=== PATIENT | female | born 1950 | race Caucasian/White ===

== ENCOUNTER 2017-09-05 13:14 | Outpatient (CLI) | payer OTHER, BC | END 2017-09-05 13:15 | disposition home or self-care (01) | LOC: BICMAMMO 13:14 | PROVIDERS: ATTEND Internal Medicine | DX: Z12.31 Encounter for screening mammogram for malignant neoplasm of breast (principal); R92.1 Mammographic calcification found on diagnostic imaging of breast | CPT/HCPCS: 77063; 77067 ==

== ENCOUNTER 2019-01-23 08:45 | Day surgery (SDC) | payer OTHER ==
[2019-01-22 15:57] VITALS: BMI 21.2
[2019-01-23] MEDS ORDERED: Lidocaine 2% Jelly 5 ML TUBE ONE (10:37)
[2019-01-23] MEDS ORDERED: Fentanyl 100 MCG/2 ML VIAL ONE ×3 (10:37→13:05)
[2019-01-23] MEDS ORDERED: Ondansetron PF 4 MG/2 ML Vial ONE (13:05)
[2019-01-23] MEDS ORDERED: Promethazine HCl 25 MG/ML VIAL ONE (14:04)
--- NOTE | 2019-01-24 09:11 | OP ---
DATE OF PROCEDURE: 01/23/2019 TRUST MANAGER: Arian Amador PA-C. INDICATION: Pain. DIAGNOSIS: Cervical radiculopathy. PROCEDURE PERFORMED: Anterior cervical diskectomy and fusion, C6-7. ANESTHESIA: General. DESCRIPTION OF PROCEDURE: The patient was brought into the operating room and placed under general anesthesia. She was placed on the table in supine position. A transverse incision was planned over the lateral aspect of the neck on the right. After prepping and draping and after an appropriate operative pause, the incision was created. The underlying platysma muscle was identified and incised. A blunt tissue plane anterior to the sternocleidomastoid muscle was used to gain access to the prevertebral space. After identifying the appropriate level with C-arm fluoroscopy, an annulotomy was performed in the C6-C7 disk space. All disk material was removed as were anterior and posterior osteophytes until the exiting nerve root at C6-C7 was decompressed. A 7-mm lordotic PEEK cage packed with allograft and autograft material was then placed within the interbody space. An anterior cervical plate was then fashioned to the front of spine and secured with a total of 4 fixed screws. Midline and lateral structures were then inspected and found to be free of significant trauma. The wound was irrigated. Hemostasis was maintained throughout. The wound was then closed in anatomic layers and a pressure dressing was applied. There were no known procedural complications. Job ID: [id number]
== END 2019-01-23 14:58 | disposition home or self-care (01) ==
LOC: SDC 08:45
PROVIDERS: ATTEND Neurological Surgery
PROC: 0RT30ZZ Resection of Cervical Vertebral Disc, Open Approach (ICD-10-PCS; principal; 2019-01-23)
PROC: 0RG10A0 Fusion of Cervical Vertebral Joint with Interbody Fusion Device, Anterior Approach, Anterior Column, Open Approach (ICD-10-PCS; principal; 2019-01-23)
DX: M54.12 Radiculopathy, cervical region (principal); I10 Essential (primary) hypertension; Z88.8 Allergy status to other drugs, medicaments and biological substances
CPT/HCPCS: 76000; C1713; C1776; J0690; J2405; J2550; J3010

== ENCOUNTER 2019-03-08 07:25 | Day surgery (SDC) | payer OTHER ==
[2019-03-07 09:23] VITALS: BMI 21.2
[2019-03-08] MEDS ORDERED: Midazolam HCl 2 mg/2 ml Vial ONE (08:03)
[2019-03-08] MEDS ORDERED: Fentanyl 100 MCG/2 ML VIAL ONE ×2 (08:03→09:29)
[2019-03-08] MEDS ORDERED: Scopolamine 1.5 mg/72 hour Patch ONE (08:09)
[2019-03-08] MEDS ORDERED: Ketorolac Tromethamine 30 MG/ML VIAL IVP PRN (09:16)
[2019-03-08] MEDS ORDERED: traMADol HCl 50 MG TAB PO PRN ×2 (09:16)
[2019-03-08] MEDS ORDERED: HYDROcodone/Acetaminophen 10/325 mg Tablet PO PRN ×2 (09:16)
[2019-03-08] MEDS ORDERED: Ondansetron PF 4 MG/2 ML Vial IVP PRN (09:16)
[2019-03-08] MEDS ORDERED: Promethazine HCl 25 MG/ML VIAL IM PRN (09:16)
[2019-03-08] MEDS ORDERED: Ropivacaine 0.2% 550 ML 550 ML NERVE BLCK SCH (09:16)
[2019-03-08] MEDS ORDERED: Zolpidem Tartrate 5 MG TAB PO PRN (09:16)
[2019-03-08] MEDS ORDERED: Acetaminophen 325 MG TAB PO PRN (09:17)
[2019-03-08] MEDS ORDERED: Fentanyl 100 MCG/2 ML VIAL SLOW IVP PRN (09:17)
[2019-03-08] MEDS ORDERED: Promethazine HCl 25 MG/ML VIAL ONE (11:18)
[2019-03-08] MEDS ORDERED: HYDROcodone/Acetaminophen 5/325 mg Tablet ONE (11:31)
[2019-03-08] MEDS ORDERED: PROPOFOL 200 MG/20 ML VIAL ONE (12:07)
[2019-03-08] MEDS ORDERED: Ropivacaine 0.2% HCl/PF (40 MG/20 ML VIAL) ONE (12:07)
[2019-03-08] MEDS ORDERED: Ondansetron PF 4 MG/2 ML Vial ONE (12:07)
[2019-03-08] MEDS ORDERED: Rocuronium Bromide 10 MG/ML (10ML VIAL) ONE (12:07)
[2019-03-08] MEDS ORDERED: Glycopyrrolate 0.2 MG/ML 5 ML SYRINGE ONE (12:07)
[2019-03-08] MEDS ORDERED: Dexamethasone 20 MG/5 ML VIAL ONE (12:07)
[2019-03-08] MEDS ORDERED: Bupivacaine HCl 0.5%/Epinephrine 1:200,000/PF 30 ml Vial ONE (12:07)
[2019-03-08] MEDS ORDERED: Metoclopramide HCl 10 MG/2 ML VIAL ONE (12:07)
[2019-03-08] MEDS ORDERED: Lidocaine 1% PF 5 ML VIAL ONE (12:07)
--- NOTE | 2019-03-10 21:25 | OP ---
DATE OF PROCEDURE: 03/08/2019 PREOPERATIVE DIAGNOSIS: Rotator cuff tear, right shoulder. POSTOPERATIVE DIAGNOSIS: Rotator cuff tear, right shoulder. PROCEDURE PERFORMED: 1. Arthroscopic subacromial decompression. 2. Arthroscopic rotator cuff repair. ANESTHESIA: General. BLOOD LOSS: Minimal. SPECIMEN: None. DRAINS: None. COMPLICATION: None. DESCRIPTION OF PROCEDURE: The patient was taken to the operating room, where general anesthesia was induced. The patient was placed in left lateral decubitus position. Right arm was placed in traction, prepped and draped in usual sterile fashion. Scope was then placed in glenohumeral joint. There were only minimal arthritic changes. There was a full-thickness rotator cuff tear. The biceps tendon was in good condition. The scope was placed in the subacromial bursa, bursectomy was performed. The CA ligament was taken down. Hemostasis obtained. Anterior and inferior acromioplasty was performed using a bur. I freshened the rotator cuff tear, freshened the greater tuberosity. I used three [id number]-[id number] convergence sutures to repair the central portion of the defect. I then placed a corkscrew suture anchor through the denuded bone and passed sutures through the anterior and posterior limb of the tear, tied this down to good watertight repair and then reinforced this with a double row type configuration using a SwiveLock device. The shoulder was drained, portals closed with nylon suture. Sterile dressings applied. Job ID: [id number]
== END 2019-03-08 13:35 | disposition home or self-care (01) ==
LOC: SDC 07:25
PROVIDERS: ATTEND Orthopaedic Surgery
PROC: 3E0T3BZ Introduction of Anesthetic Agent into Peripheral Nerves and Plexi, Percutaneous Approach (ICD-10-PCS; principal; 2019-03-08)
PROC: 0LQ14ZZ Repair Right Shoulder Tendon, Percutaneous Endoscopic Approach (ICD-10-PCS; principal; 2019-03-08)
PROC: 0RNJ4ZZ Release Right Shoulder Joint, Percutaneous Endoscopic Approach (ICD-10-PCS; principal; 2019-03-08)
DX: M75.121 Complete rotator cuff tear or rupture of right shoulder, not specified as traumatic (principal); G89.18 Other acute postprocedural pain; F41.9 Anxiety disorder, unspecified; F32.9 Major depressive disorder, single episode, unspecified; M19.90 Unspecified osteoarthritis, unspecified site; Z87.891 Personal history of nicotine dependence; Z79.899 Other long term (current) drug therapy; Z88.8 Allergy status to other drugs, medicaments and biological substances
CPT/HCPCS: A4306; C1713; J0670; J0690; J1100; J2001; J2250; J2405; J2550; J2704; J2765; J2795; J3010

== ENCOUNTER 2022-07-20 15:12 | Inpatient (IN) | payer BC, MEDICARE ==
[~2022-07-20 15:12] MED LIST: Iopamidol-370 76% 500 ML MDV (1 ML CHARGE) ONE
[2022-07-20 16:47] VITALS: BMI 24.8
[2022-07-20] MEDS ORDERED: Senokot S 8.6-50 MG TAB PO PRN (17:12)
[2022-07-20] MEDS ORDERED: Bisacodyl 10 MG SUPP PR PRN (17:12)
[2022-07-20] MEDS ORDERED: Ondansetron PF 4 MG/2 ML Vial IVP PRN (17:12)
[2022-07-20] MEDS ORDERED: Bisacodyl 5 MG TAB PO PRN (17:12)
[2022-07-20] MEDS ORDERED: Acetaminophen 325 MG TAB PO PRN (17:12)
[2022-07-20] MEDS ORDERED: Cosyntropin 250 MCG VIAL SLOW IVP SCH (17:30)
[2022-07-20] MEDS ORDERED: Sodium Chloride 0.9% 1,000 ML IV SCH (17:30)
[2022-07-20] MEDS ORDERED: ALPRAZolam 1 MG TAB PO PRN (17:40)
[2022-07-20] MEDS ORDERED: Zolpidem Tartrate 5 MG TAB PO PRN (17:43)
[2022-07-20] MEDS ORDERED: Fioricet 325/50/40 mg Tablet PO PRN (19:01)
[2022-07-20 19:36] LABS: Sodium 119 mmol/L (136-145)
[2022-07-20] MEDS: Latanoprost 0.005% Ophth Soln 2.5 ml Bottle EA EYE SCH (20:04)
[2022-07-20] MEDS: Amlodipine 10 MG TAB PO SCH (20:39)
[2022-07-20] MEDS: Atorvastatin Calcium 10 MG TAB PO SCH (20:39)
[2022-07-20] MEDS: Promethazine HCl 25 MG in Sodium Chloride 0.9% 50 ML IVPB PRN (20:42)
[2022-07-20 21:39] LABS: SARS-CoV-2 NAA Rapid Test Not Detected (NotDetected)
[2022-07-20 22:55] LABS: Bacteria/HPF None Seen HPF (None Seen); Bilirubin Negative (Negative); Blood, Urine Negative (Negative); CAUTI Indications for Culture Alt mental st,lethar; Clarity Clear (Clear); Glucose, Urine (Dipstick) Normal (Negative); Ketone, Urine 20 mg/dL (Negative); Leukocyte Negative Leu/uL (Negative); Nitrite Negative (Negative); Protein, Urine (Dipstick) Negative (Neg-Trace); RBC/HPF None Seen HPF (0-3); Specific Gravity, Urine 1.035 (1.002-1.036); Squamous Epithelial 0-3 HPF (0-3); Urobilinogen Normal mg/dL (Less than 2); WBC/HPF 0-3 HPF (0-3)
[2022-07-20 22:56] LABS: Urine Culture Reflex No No
[2022-07-20] MEDS: Ketorolac Tromethamine 30 MG/ML VIAL IVP PRN (23:13)
[2022-07-21 00:06] LABS: Anion Gap 16 mmol/L (10-20); BUN (Urea Nitrogen) 9 mg/dL (9.8-20.1); Calc. Creatinine Clearance 70 mL/min (70-130); Calcium 9.1 mg/dL (7.8-10.44); Carbon Dioxide 20 mmol/L (23-31); Chloride 87 mmol/L (98-107); Estimated GFR 90; Glucose 99 mg/dL (83-110); Potassium 3.7 mmol/L (3.5-5.1)
[2022-07-21 00:14] LABS: Sodium 119 mmol/L (136-145)
[2022-07-21] MEDS: Promethazine HCl 25 MG in Sodium Chloride 0.9% 50 ML IVPB PRN (02:48)
[2022-07-21 06:07] LABS: #Lymphocytes 2.2 thou/uL (1.20-3.40); #Monocytes 0.5 thou/uL (0.11-0.59); #Neutrophils 7.9 thou/uL (1.40-6.50); %Basophils 0.1 % (0.0-1.0); %Lymphocytes 20.6 % (21.0-51.0); %Monocytes 5.1 % (0.0-10.0); %Neutrophils 74.2 % (42.0-75.0); Hemoglobin 13.1 g/dL (12.0-16.0); Mean Corpuscular HGB CONC 35.3 g/dL (32.0-36.0); Mean Corpuscular Hemoglobin 30.8 pg (27.0-31.0); Mean Corpuscular Volume 87.5 fl (78.0-98.0); Mean Platelet Volume 6.5 fL (7.4-10.4); Platelet Count 381 10x3/uL (130-400); RBC Distribution Width 10.8 % (11.5-14.5); Red Blood Cell (RBC) Count 4.24 mill/uL (4.20-5.40); White Blood Cell (WBC) Count 10.7 10x3/uL (4.8-10.8)
[2022-07-21 06:10] LABS: Hemoglobin A1c 5.8 % (4.0-6.0)
[2022-07-21 06:18] LABS: ALT (SGPT) 19 U/L (8-55); AST (SGOT) 20 U/L (5-34); Albumin 4.5 g/dL (3.4-4.8); Alkaline Phosphatase 64 U/L (40-110); Anion Gap 18 mmol/L (10-20); BUN (Urea Nitrogen) 8 mg/dL (9.8-20.1); Bilirubin, Direct 0.2 mg/dL (0.1-0.3); Bilirubin, Total 0.4 mg/dL (0.2-1.2); Calc. Creatinine Clearance 66 mL/min (70-130); Calcium 9.6 mg/dL (7.8-10.44); Carbon Dioxide 23 mmol/L (23-31); Chloride 88 mmol/L (98-107); Estimated GFR 85; Glucose 87 mg/dL (83-110); Magnesium 1.9 mg/dL (1.6-2.6); Potassium 3.5 mmol/L (3.5-5.1); Protein, Total 7.5 g/dL (5.8-8.1); Sodium 125 mmol/L (136-145)
[2022-07-21] MEDS: Losartan 25 MG TAB PO SCH (08:32)
[2022-07-21] MEDS ORDERED: Amlodipine 10 MG TAB PO SCH (09:00)
[2022-07-21] MEDS ORDERED: Atorvastatin Calcium 10 MG TAB PO SCH (09:00)
[2022-07-21 11:01] LABS: Sodium 123 mmol/L (136-145)
[2022-07-21] MEDS: Ketorolac Tromethamine 30 MG/ML VIAL IVP PRN (12:57)
[2022-07-21 14:36] LABS: Sodium 122 mmol/L (136-145)
[2022-07-21] MEDS ORDERED: Sodium Chloride 0.9% 1,000 ML IV SCH (16:00)
[2022-07-21] MEDS: Atorvastatin Calcium 10 MG TAB PO SCH (20:50)
[2022-07-21] MEDS: Latanoprost 0.005% Ophth Soln 2.5 ml Bottle EA EYE SCH (20:50)
[2022-07-21] MEDS: Amlodipine 10 MG TAB PO SCH (20:50)
[2022-07-21 21:03] LABS: Potassium 3.4 mmol/L (3.5-5.1); Sodium 122 mmol/L (136-145)
[2022-07-21] MEDS ORDERED: Potassium Chloride 20 MEQ TAB PO SCH (21:30)
[2022-07-21] MEDS ORDERED: Electrolyte Replacement Protocol 1 EACH FS SCH (22:45)
[2022-07-22 05:51] LABS: #Lymphocytes 3.3 thou/uL (1.20-3.40); #Monocytes 0.9 thou/uL (0.11-0.59); #Neutrophils 6.9 thou/uL (1.40-6.50); %Basophils 0.2 % (0.0-1.0); %Eosinophils 0.2 % (0.0-10.0); %Lymphocytes 29.5 % (21.0-51.0); %Monocytes 8.4 % (0.0-10.0); %Neutrophils 61.7 % (42.0-75.0); Hemoglobin 11.4 g/dL (12.0-16.0); Mean Corpuscular HGB CONC 35.9 g/dL (32.0-36.0); Mean Corpuscular Hemoglobin 31.9 pg (27.0-31.0); Mean Corpuscular Volume 88.8 fl (78.0-98.0); Mean Platelet Volume 6.4 fL (7.4-10.4); Platelet Count 333 10x3/uL (130-400); Red Blood Cell (RBC) Count 3.59 mill/uL (4.20-5.40); White Blood Cell (WBC) Count 11.2 10x3/uL (4.8-10.8)
[2022-07-22 06:14] LABS: Anion Gap 14 mmol/L (10-20); BUN (Urea Nitrogen) 7 mg/dL (9.8-20.1); Calc. Creatinine Clearance 75 mL/min (70-130); Carbon Dioxide 22 mmol/L (23-31); Chloride 90 mmol/L (98-107); Estimated GFR 93; Glucose 94 mg/dL (83-110); Magnesium 1.7 mg/dL (1.6-2.6); Potassium 3.6 mmol/L (3.5-5.1); Sodium 122 mmol/L (136-145)
[2022-07-22] MEDS ORDERED: Magnesium 2 GM/50 ML(in water) 2 GM in Premix Bag 1 BAG IVPB SCH (08:00)
[2022-07-22 08:17] VITALS: TEMP 97.9
[2022-07-22] MEDS: Losartan 25 MG TAB PO SCH (09:06)
[2022-07-22] MEDS ORDERED: Sodium Chloride 1 GM TAB PO SCH ×2 (10:00→15:00)
[2022-07-22 15:38] LABS: Potassium 3.3 mmol/L (3.5-5.1); Sodium 129 mmol/L (136-145)
[2022-07-22] MEDS ORDERED: Potassium Chloride 20 MEQ TAB PO SCH (16:30)
[2022-07-22 16:40] VITALS: BP 168/74
== END 2022-07-22 18:15 | disposition home or self-care (01) | DRG 643 ==
LOC: NEURO 16:21
PROVIDERS: ADMIT Family Medicine; ATTEND Family Medicine
DX: E22.2 Syndrome of inappropriate secretion of antidiuretic hormone (principal); G93.41 Metabolic encephalopathy; E87.20 Acidosis, unspecified; G43.909 Migraine, unspecified, not intractable, without status migrainosus; F41.9 Anxiety disorder, unspecified; E78.5 Hyperlipidemia, unspecified; I10 Essential (primary) hypertension; L40.50 Arthropathic psoriasis, unspecified; E86.0 Dehydration; T43.225A Adverse effect of selective serotonin reuptake inhibitors, initial encounter; T43.015A Adverse effect of tricyclic antidepressants, initial encounter; E87.8 Other disorders of electrolyte and fluid balance, not elsewhere classified; R19.7 Diarrhea, unspecified; Z87.440 Personal history of urinary (tract) infections; Z79.899 Other long term (current) drug therapy; Z88.8 Allergy status to other drugs, medicaments and biological substances; Z90.49 Acquired absence of other specified parts of digestive tract; Z90.710 Acquired absence of both cervix and uterus; Z20.822 Contact with and (suspected) exposure to COVID-19
CPT/HCPCS: 36415; 70450; 71260; 74177; 80048; 80076; 81001; 82024; 82088; 82533; 83036; 83735; 83930; 83935; 84244; 84300; 84443; 85025; 87040; J1650; J1885; J2405; J2550; J3475; J7050; Q9967; U0002

== ENCOUNTER 2022-07-22 23:49 | Inpatient (IN) | payer MEDICARE ==
[2022-07-23 00:14] LABS: PTT 31.3 sec (22.9-36.1); Prothrombin Time 13.4 sec (12.0-14.7)
[2022-07-23 00:25] LABS: #Lymphocytes 3.1 thou/uL (1.20-3.40); #Monocytes 1.1 thou/uL (0.11-0.59); #Neutrophils 9.8 thou/uL (1.40-6.50); %Basophils 0.1 % (0.0-1.0); %Eosinophils 0.1 % (0.0-10.0); %Lymphocytes 22.1 % (21.0-51.0); %Monocytes 7.5 % (0.0-10.0); %Neutrophils 70.2 % (42.0-75.0); Hemoglobin 12.4 g/dL (12.0-16.0); Mean Corpuscular HGB CONC 34.7 g/dL (32.0-36.0); Mean Corpuscular Hemoglobin 30.7 pg (27.0-31.0); Mean Corpuscular Volume 88.7 fl (78.0-98.0); Mean Platelet Volume 6.2 fL (7.4-10.4); Platelet Count 407 10x3/uL (130-400); RBC Distribution Width 10.9 % (11.5-14.5); Red Blood Cell (RBC) Count 4.04 mill/uL (4.20-5.40)
[2022-07-23 00:38] LABS: ALT (SGPT) 20 U/L (8-55); AST (SGOT) 23 U/L (5-34); Albumin 4.6 g/dL (3.4-4.8); Alkaline Phosphatase 58 U/L (40-110); Anion Gap 15 mmol/L (10-20); BUN (Urea Nitrogen) 8 mg/dL (9.8-20.1); Bilirubin, Total 0.4 mg/dL (0.2-1.2); CK (CPK) 134 U/L (29-168); Calc. Creatinine Clearance 0 mL/min (70-130); Calcium 9.6 mg/dL (7.8-10.44); Carbon Dioxide 23 mmol/L (23-31); Chloride 91 mmol/L (98-107); Estimated GFR 92; Globulin 2.8 g/dL (2.4-3.5); Glucose 135 mg/dL (83-110); Lipase 32 U/L (8-78); Potassium 3.8 mmol/L (3.5-5.1); Protein, Total 7.4 g/dL (5.8-8.1); Sodium 125 mmol/L (136-145)
[2022-07-23] MEDS ORDERED: Labetalol HCl 100 MG/20 ML VIAL ONE (01:44)
[2022-07-23] MEDS ORDERED: levETIRAcetam 500 MG/5 ML VIAL ONE ×3 (01:44→08:06)
[2022-07-23] MEDS ORDERED: LORazepam 2 MG/ML SYR.(CARPUJECT) ONE (01:44)
[2022-07-23 02:26] LABS: Alcohol Less than 10 mg/dL (Less than 10)
[2022-07-23 02:28] LABS: Magnesium 1.9 mg/dL (1.6-2.6)
[2022-07-23 02:29] LABS: Acetaminophen Less than 10.0 mcg/mL (10.0-30.0); Salicylate Less than 8.0 mg/dL (15.0-30.0)
[2022-07-23] MEDS ORDERED: Ondansetron PF 4 MG/2 ML Vial IVP PRN (03:55)
[2022-07-23] MEDS ORDERED: Ondansetron ODT 4 MG TAB PO PRN (03:55)
[2022-07-23] MEDS ORDERED: Acetaminophen 650 MG Suppository PR PRN (03:55)
[2022-07-23] MEDS ORDERED: Acetaminophen 325 MG TAB PO PRN (03:55)
[2022-07-23] MEDS ORDERED: Lorazepam 2 MG/ML VIAL SLOW IVP PRN (03:57)
[2022-07-23 04:29] LABS: Lactic Acid 1.8 mmol/L (0.5-2.2)
[2022-07-23] MEDS: cefTRIAXone\\ROCEPHIN 2 GM in Sodium Chloride 0.9% 100 ML IVPB SCH (05:00)
[2022-07-23] MEDS ORDERED: cefTRIAXone (ROCEPHIN) 2 GM VIAL ONE (05:16)
[2022-07-23 05:39] LABS: Anion Gap 16 mmol/L (10-20); BUN (Urea Nitrogen) 9 mg/dL (9.8-20.1); Calc. Creatinine Clearance 0 mL/min (70-130); Carbon Dioxide 21 mmol/L (23-31); Chloride 91 mmol/L (98-107); Estimated GFR 94; Glucose 131 mg/dL (83-110); Potassium 3.8 mmol/L (3.5-5.1); Sodium 124 mmol/L (136-145)
[2022-07-23 05:49] LABS: Bacteria/HPF None Seen HPF (None Seen); Bilirubin Negative (Negative); Blood, Urine Negative (Negative); Clarity Clear (Clear); Glucose, Urine (Dipstick) 300 mg/dL (Negative); Ketone, Urine 20 mg/dL (Negative); Leukocyte 25 Leu/uL (Negative); Nitrite Negative (Negative); Protein, Urine (Dipstick) Negative (Neg-Trace); RBC/HPF 0-3 HPF (0-3); Squamous Epithelial 0-3 HPF (0-3); Urobilinogen Normal mg/dL (Less than 2); WBC/HPF 0-3 HPF (0-3)
[2022-07-23 05:58] LABS: #Lymphocytes 2.7 thou/uL (1.20-3.40); #Monocytes 1.3 thou/uL (0.11-0.59); #Neutrophils 8.9 thou/uL (1.40-6.50); %Basophils 0.4 % (0.0-1.0); %Lymphocytes 21.1 % (21.0-51.0); %Monocytes 9.7 % (0.0-10.0); %Neutrophils 68.8 % (42.0-75.0); Mean Corpuscular HGB CONC 34.2 g/dL (32.0-36.0); Mean Corpuscular Hemoglobin 30.6 pg (27.0-31.0); Mean Corpuscular Volume 89.4 fl (78.0-98.0); Mean Platelet Volume 6.4 fL (7.4-10.4); Platelet Count 353 10x3/uL (130-400); RBC Distribution Width 10.9 % (11.5-14.5); Red Blood Cell (RBC) Count 3.59 mill/uL (4.20-5.40); White Blood Cell (WBC) Count 12.9 10x3/uL (4.8-10.8)
[2022-07-23] MEDS: VANCOMYCIN 1.25 GM/250 ML BAG 1.25 GM in Premix Bag 1 BAG IVPB SCH (06:38)
[2022-07-23] MEDS: levETIRAcetam 500 MG/5 ML VIAL SLOW IVP SCH ×2 (08:59→20:11)
[2022-07-23] MEDS: Sodium Chloride 1 GM TAB PO SCH ×2 (08:59→20:11)
[2022-07-23] MEDS ORDERED: Ondansetron PF 4 MG/2 ML Vial ONE (09:26)
[2022-07-23 09:52] LABS: Anion Gap 13 mmol/L (10-20); BUN (Urea Nitrogen) 6 mg/dL (9.8-20.1); Calc. Creatinine Clearance 0 mL/min (70-130); Calcium 9.1 mg/dL (7.8-10.44); Carbon Dioxide 25 mmol/L (23-31); Chloride 95 mmol/L (98-107); Estimated GFR 94; Glucose 103 mg/dL (83-110); Potassium 3.6 mmol/L (3.5-5.1); Sodium 129 mmol/L (136-145)
[2022-07-23] MEDS ORDERED: Acetaminophen 325 MG TAB ONE (15:03)
[2022-07-23 17:06] LABS: Potassium 3.2 mmol/L (3.5-5.1); Sodium 129 mmol/L (136-145)
[2022-07-23 17:43] VITALS: BMI 23.6
[2022-07-23] MEDS ORDERED: Potassium Chloride 20 MEQ TAB PO SCH (18:15)
[2022-07-23] MEDS ORDERED: Promethazine 25 MG TAB PO PRN (18:58)
[2022-07-23] MEDS ORDERED: Ketorolac Tromethamine 30 MG/ML VIAL IVP PRN (19:05)
[2022-07-23 19:06] LABS: Amphetamine Not Detected (NotDetected); Barbiturates Screen Not Detected (NotDetected); Benzodiazepine Screen Detected (NotDetected); Cocaine Metabolite Screen Not Detected (NotDetected); Methadone Not Detected (NotDetected); Methamphetamine Not Detected (NotDetected); Opiate Screen Not Detected (NotDetected); Oxycodone Screen Not Detected (NotDetected); Phencyclidine (PCP) Not Detected (NotDetected); THC/Cannabinoid Screen Not Detected (NotDetected); Tricyclic Screen Not Detected (NotDetected)
[2022-07-23] MEDS ORDERED: SUMAtriptan Succinate 50 MG TAB PO PRN (19:08)
[2022-07-23] MEDS ORDERED: Zolpidem Tartrate 5 MG TAB PO PRN (19:14)
[2022-07-23] MEDS: Fioricet 325/50/40 mg Tablet PO SCH (20:12)
[2022-07-23] MEDS: Zolpidem Tartrate 5 MG TAB PO PRN (20:12)
[2022-07-23] MEDS: Amlodipine 10 MG TAB PO SCH (20:13)
[2022-07-23] MEDS: Atorvastatin Calcium 10 MG TAB PO SCH (20:13)
[2022-07-23] MEDS: Latanoprost 0.005% Ophth Soln 2.5 ml Bottle EA EYE SCH (20:13)
[2022-07-23] MEDS: Promethazine HCl 25 MG in Sodium Chloride 0.9% 50 ML IVPB PRN (21:07)
[2022-07-24] MEDS: Fioricet 325/50/40 mg Tablet PO SCH ×4 (00:57→17:55)
[2022-07-24] MEDS: ALPRAZolam 1 MG TAB PO PRN ×2 (04:16→19:31)
[2022-07-24] MEDS: cefTRIAXone\\ROCEPHIN 2 GM in Sodium Chloride 0.9% 100 ML IVPB SCH (04:16)
[2022-07-24 05:34] LABS: #Basophils 0.1 thou/uL (0.0-0.2); #Eosinphils 0.1 thou/uL (0.0-0.7); #Lymphocytes 3.1 thou/uL (1.20-3.40); #Monocytes 0.6 thou/uL (0.11-0.59); #Neutrophils 4.8 thou/uL (1.40-6.50); %Basophils 0.7 % (0.0-1.0); %Eosinophils 0.6 % (0.0-10.0); %Lymphocytes 36.1 % (21.0-51.0); %Neutrophils 55.6 % (42.0-75.0); Hemoglobin 10.4 g/dL (12.0-16.0); Mean Corpuscular HGB CONC 34.6 g/dL (32.0-36.0); Mean Corpuscular Hemoglobin 31.6 pg (27.0-31.0); Mean Corpuscular Volume 91.4 fl (78.0-98.0); Mean Platelet Volume 6.3 fL (7.4-10.4); Platelet Count 306 10x3/uL (130-400); Red Blood Cell (RBC) Count 3.27 mill/uL (4.20-5.40); White Blood Cell (WBC) Count 8.7 10x3/uL (4.8-10.8)
[2022-07-24 05:56] LABS: ALT (SGPT) 17 U/L (8-55); AST (SGOT) 22 U/L (5-34); Albumin 3.8 g/dL (3.4-4.8); Alkaline Phosphatase 43 U/L (40-110); Anion Gap 13 mmol/L (10-20); BUN (Urea Nitrogen) 8 mg/dL (9.8-20.1); Bilirubin, Direct 0.1 mg/dL (0.1-0.3); Bilirubin, Total 0.2 mg/dL (0.2-1.2); Calc. Creatinine Clearance 68 mL/min (70-130); Calcium 8.7 mg/dL (7.8-10.44); Carbon Dioxide 25 mmol/L (23-31); Chloride 98 mmol/L (98-107); Estimated GFR 92; Glucose 97 mg/dL (83-110); Magnesium 1.7 mg/dL (1.6-2.6); Sodium 132 mmol/L (136-145)
[2022-07-24] MEDS: VANCOMYCIN 1.25 GM/250 ML BAG 1.25 GM in Premix Bag 1 BAG IVPB SCH (06:06)
[2022-07-24] MEDS: Sodium Chloride 1 GM TAB PO SCH ×2 (08:50→20:30)
[2022-07-24] MEDS: OLMESARTAN 40 MG TABLET PO SCH (08:51)
[2022-07-24] MEDS: levETIRAcetam 500 MG/5 ML VIAL SLOW IVP SCH (08:52)
[2022-07-24] MEDS ORDERED: Losartan 25 MG TAB PO SCH (09:00)
[2022-07-24] MEDS ORDERED: Ibuprofen 600 MG TAB PO PRN (09:53)
[2022-07-24] MEDS: Promethazine HCl 25 MG in Sodium Chloride 0.9% 50 ML IVPB PRN (10:18)
[2022-07-24] MEDS: Latanoprost 0.005% Ophth Soln 2.5 ml Bottle EA EYE SCH (20:30)
[2022-07-24] MEDS: levETIRAcetam 500 MG TAB PO SCH (20:30)
[2022-07-24] MEDS: Amlodipine 10 MG TAB PO SCH (20:30)
[2022-07-24] MEDS: Atorvastatin Calcium 10 MG TAB PO SCH (20:30)
[2022-07-24] MEDS: Zolpidem Tartrate 5 MG TAB PO PRN (20:31)
[2022-07-24] MEDS ORDERED: levETIRAcetam 500 MG TAB PO SCH (21:00)
[2022-07-25] MEDS: Fioricet 325/50/40 mg Tablet PO SCH ×3 (00:28→13:21)
[2022-07-25 05:17] LABS: #Eosinphils 0.2 thou/uL (0.0-0.7); #Lymphocytes 3.5 thou/uL (1.20-3.40); #Monocytes 0.6 thou/uL (0.11-0.59); #Neutrophils 4.1 thou/uL (1.40-6.50); %Basophils 0.4 % (0.0-1.0); %Eosinophils 1.8 % (0.0-10.0); %Lymphocytes 41.9 % (21.0-51.0); %Monocytes 7.6 % (0.0-10.0); %Neutrophils 48.3 % (42.0-75.0); Hemoglobin 10.1 g/dL (12.0-16.0); Mean Corpuscular HGB CONC 35.1 g/dL (32.0-36.0); Mean Corpuscular Hemoglobin 31.5 pg (27.0-31.0); Mean Corpuscular Volume 89.6 fl (78.0-98.0); Mean Platelet Volume 6.4 fL (7.4-10.4); Platelet Count 296 10x3/uL (130-400); RBC Distribution Width 10.9 % (11.5-14.5); Red Blood Cell (RBC) Count 3.21 mill/uL (4.20-5.40); White Blood Cell (WBC) Count 8.4 10x3/uL (4.8-10.8)
[2022-07-25 05:40] LABS: Anion Gap 11 mmol/L (10-20); BUN (Urea Nitrogen) 8 mg/dL (9.8-20.1); Calc. Creatinine Clearance 71 mL/min (70-130); Calcium 8.8 mg/dL (7.8-10.44); Carbon Dioxide 28 mmol/L (23-31); Chloride 99 mmol/L (98-107); Estimated GFR 93; Glucose 101 mg/dL (83-110); Magnesium 1.7 mg/dL (1.6-2.6); Potassium 3.4 mmol/L (3.5-5.1); Sodium 135 mmol/L (136-145)
[2022-07-25] MEDS: Sodium Chloride 1 GM TAB PO SCH (09:02)
[2022-07-25] MEDS: levETIRAcetam 500 MG TAB PO SCH (09:03)
[2022-07-25] MEDS: OLMESARTAN 40 MG TABLET PO SCH (09:03)
[2022-07-25] MEDS: ALPRAZolam 1 MG TAB PO PRN (11:27)
[2022-07-25 15:26] VITALS: BP 133/78; TEMP 97.8
== END 2022-07-25 15:25 | disposition home or self-care (01) | DRG 100 ==
LOC: ERS 23:49 → ERHOLD 07-23 03:22 → NEURO 07-23 17:28
PROVIDERS: ADMIT Student in an Organized Health Care Education/Training Program; ATTEND Emergency Medicine
PROC: 4A10X4Z Monitoring of Central Nervous Electrical Activity, External Approach (ICD-10-PCS; principal; 2022-07-23)
DX: R56.9 Unspecified convulsions (principal); G93.41 Metabolic encephalopathy; E87.1 Hypo-osmolality and hyponatremia; G43.909 Migraine, unspecified, not intractable, without status migrainosus; I10 Essential (primary) hypertension; F41.9 Anxiety disorder, unspecified; F32.A Depression, unspecified; L40.50 Arthropathic psoriasis, unspecified; E87.6 Hypokalemia; Z98.890 Other specified postprocedural states; Z90.49 Acquired absence of other specified parts of digestive tract; Z90.710 Acquired absence of both cervix and uterus; Z88.8 Allergy status to other drugs, medicaments and biological substances; Z79.899 Other long term (current) drug therapy
CPT/HCPCS: 36415; 70450; 70496; 70498; 70551; 71045; 80048; 80076; 80306; 80307; 81015; 82140; 82550; 83605; 83690; 83735; 83880; 83930; 83935; 84145; 84300; 84443; 84484; 85025; 85610; 85652; 85730; 86140; 87040; 93005; 95816; 95819; 95957; J0696; J1650; J1953; J2060; J2405; J2550; J3370; J3490; Q9967